=== PATIENT | female | born 1980 | race Caucasian/White ===

== ENCOUNTER → 2017-05-23 | Outpatient (CLI) | payer BC ==
--- NOTE | 2017-05-23 08:04 | MM ---
Reason for exam: additional evaluation requested from prior study. Last mammogram was performed 1 year and 6 months ago. Physical Findings: Nurse did not find any significant physical abnormalities on exam. MG Diagnostic Mammo w CAD DARLYN Bilateral CC and MLO view(s) were taken. LM, CCRM, and spot compression MLO view(s) were taken of the left breast. Prior study comparison: November 25, 2015, bilateral MG screening mammo w CAD. The breast tissue is heterogeneously dense. This may lower the sensitivity of mammography. Nodular density in the left breast does not persist following spot compression. 6 month follow up recommended. These results were verbally communicated with the patient and result sheet given to the patient on 05/23/17. ASSESSMENT: Probably benign, BI-RAD 3 RECOMMENDATION: Follow-up diagnostic mammogram of the left breast in 6 months.
== END | disposition home or self-care (01) ==
LOC: RADMAMWWP 06:55
PROVIDERS: ATTEND Obstetrics & Gynecology
DX: R92.8 Other abnormal and inconclusive findings on diagnostic imaging of breast (principal)

== ENCOUNTER → 2018-04-16 | Outpatient (CLI) | payer BC ==
[2018-04-16 08:59] LABS: ALT 27 U/L (9-52); AST 23 U/L (14-36); Albumin 4.2 g/dL (3.5-5.0); Alkaline Phosphatase 62 U/L (38-126); Anion Gap 10 mmol/L; Blood Urea Nitrogen 15 mg/dL (7-17); Calcium 9.3 mg/dL (8.4-10.2); Carbon Dioxide 26 mmol/L (22-30); Chloride 101 mmol/L (98-107); Cholesterol 233 mg/dL (<200); Glucose 95 mg/dL (74-99); HDL Cholesterol 53 mg/dL (40-60); LDL Cholesterol,Calculated 138 mg/dL (0-99); Potassium 4.7 mmol/L (3.5-5.1); Sodium 137 mmol/L (137-145); Total Protein 7.2 g/dL (6.3-8.2); Triglycerides 211 mg/dL (<150)
[2018-04-16 18:34] LABS: Protein, Total 6.9 g/dL (6.2-8.2)
[2018-04-17 16:13] LABS: Albumin 4.25 g/dL (3.80-4.90); Gamma Globulin 1.03 g/dL (0.70-1.50)
== END | disposition home or self-care (01) ==
LOC: LABWHC1 07:13
PROVIDERS: ATTEND Family Medicine
DX: E78.2 Mixed hyperlipidemia (principal); R77.9 Abnormality of plasma protein, unspecified
CPT/HCPCS: 36415; 80053; 80061; 84165

== ENCOUNTER → 2018-06-09 | Outpatient (CLI) | payer BC ==
--- NOTE | 2018-06-09 10:19 | MM ---
Reason for exam: additional evaluation requested from prior study. Last mammogram was performed 1 year and 1 month ago. Physical Findings: Nurse did not find any significant physical abnormalities on exam. MG Diagnostic Mammo w CAD DARLYN Bilateral CC and MLO view(s) were taken. Prior study comparison: May 23, 2017, bilateral MG diagnostic mammo w CAD DARLYN. November 25, 2015, bilateral MG screening mammo w CAD. The breast tissue is heterogeneously dense. This may lower the sensitivity of mammography. There is no discrete abnormality including area of concern. No significant new findings when compared with previous films. These results were verbally communicated with the patient and result sheet given to the patient on 06/09/18. ASSESSMENT: Negative, BI-RAD 1 RECOMMENDATION: Routine screening mammogram of both breasts in 1 year.
== END | disposition home or self-care (01) ==
LOC: RADMAMWWP 07:08
PROVIDERS: ATTEND Obstetrics & Gynecology
DX: R92.8 Other abnormal and inconclusive findings on diagnostic imaging of breast (principal)
CPT/HCPCS: 77066

== ENCOUNTER → 2020-09-16 | Outpatient (CLI) | payer BC ==
--- NOTE | 2020-09-16 17:45 | CT ---
EXAMINATION TYPE: CT abdomen pelvis wo con DATE OF EXAM: 09/16/2020 COMPARISON: None HISTORY: abdominal pain CT DLP: 475.5 mGycm Automated exposure control for dose reduction was used. Images obtained from the diaphragm to the floor the pelvis with oral contrast only. Lung bases are clear. There is no pleural effusion. Heart size is normal. There is no pericardial eff usion. Liver spleen stomach pancreas gallbladder appear normal. Bile ducts are not dilated. Stomach appears intact. There is no adrenal mass. Kidneys show normal size and contour. There is no hydronephrosis. There is focal minimal cortical thinning upper pole right kidney with 2 mm calcification. Ureters are not dila soledad. There is no retroperitoneal adenopathy. Bladder distends smoothly. Uterus is tilted towards the right side. There is no inguinal hernia. There is no free fluid in the pelvis. There is some mild fat stranding around the mid sigmoid colon. There is extraluminal air bubble on ax ial image 59. Appendix is posterior and appears normal. Small bowel pattern is normal. There is no evidence of a ralph wel obstruction. Lumbar vertebra have normal alignment. Disc spaces are fairly normal. Posterior elements are intact. Bony pelvis is intact. IMPRESSION: There is focal diverticulitis of the mid sigmoid colon. No drainable fluid collection. Normal appendix. No renal stone or obstruction.
== END | disposition home or self-care (01) ==
LOC: RADCTMAIN 15:20
PROVIDERS: ATTEND Family Medicine
DX: K57.32 Diverticulitis of large intestine without perforation or abscess without bleeding (principal)
CPT/HCPCS: 74176

== ENCOUNTER 2021-04-03 05:43 | Day surgery (SDC) | payer BC ==
[2021-03-29 11:48] VITALS: BMI 28.3
--- NOTE | 2021-04-02 13:49 | P.HPOB ---
History of Present Illness H&P Date: 04/02/21 Chief Complaint: Menorrhagia This patient is a pleasant 40 yr female who presents for hysteroscopy, D&C and endometrial ablation secondary to menorrhagia. This has been going on for many years. Ultrasound showed a normal uterus. Endometrium did have a small cystic area, otherwise normal. She has had a tubal ligation for control and is not inclined to take hormones. Review of Systems Genitourinary: Reports as per HPI, Reports menorrhagia Past Medical History Additional Past Medical History / Comment(s): diverticulitis. heavy vaginal bleeding. plantar fasciitis-rosibel History of Any Multi-Drug Resistant Organisms: None Reported Past Surgical History: Tubal Ligation Additional Past Surgical History / Comment(s): D&C, Past Anesthesia/Blood Transfusion Reactions: No Reported Reaction Smoking Status: Never smoker - Past Family History Mother Family Medical History: No Reported History Medications and Allergies Home Medications Medication Instructions Recorded Confirmed Type Ascorbic Acid/Multivit-Min 1,000 mg PO DAILY 03/29/21 03/29/21 History [Emergen-C 1,000 mg Packet] polyethylene glycoL 3350 [Miralax] 17 gm PO DAILY PRN 03/29/21 03/29/21 History Allergies Allergy/AdvReac Type Severity Reaction Status Date / Time No Known Allergies Allergy Verified 03/29/21 11:37 Exam - OBG Physical Exam Abdomen: bowel sounds normal, no diffuse tenderness, no bruit present, no guarding noted, no hepatomegaly, no splenomegaly, no mass Vulva: both: normal Vagina: normal moisture, no discharge Cervix: no lesion, no discharge Results Ultrasound on 03/10 showed endometrium to be 1.5 cm and small cystic area. Normal ovaries. Assessment and Plan Assessment: This is a pleasant 40 yr old female with longstanding menorrhagia requesting endometrial ablation for treatment. Plan is hysteroscopy D&C and Novasure endometrial ablation. I have discussed this surgery and risks: infection, bleeding, possible uterine perforation and/or thermal injury. All of her questions have been answered and a written consent obtained. (1) Menorrhagia Status: Chronic Code(s): N92.0 - EXCESSIVE AND FREQUENT MENSTRUATION WITH REGULAR CYCLE SNOMED Code(s): 761703704
[~2021-04-03 05:43] MED LIST: Pre Op ABX Message 1 EACH MISC MISCELLANE ONE
[2021-04-03] MEDS ORDERED: HYDROmorphone 0.5 MG/0.5 ML SYRINGE IVP PRN (05:50)
[2021-04-03] MEDS ORDERED: ONDANSETRON 4 MG/2 ML VIAL IVP ONE (05:50)
[2021-04-03] MEDS ORDERED: LIDOCAINE 1% (10MG/ML) FOR IV START INTRADERMA PRN (05:50)
[2021-04-03] MEDS ORDERED: DEXAMETHASONE SOD PHOSPHATE 4 MG/ML 1 ML VIAL IV ONE (05:50)
[2021-04-03] MEDS ORDERED: LACTATED RINGERS 1,000 ML IV SCH (05:50)
[2021-04-03] MEDS ORDERED: SCOPOLAMINE 1.5MG/72HR PATCH TRANSDERM ONE (05:50)
[2021-04-03] MEDS ORDERED: fentaNYL (PF) 50 MCG/ML 2 ML AMP ONE (06:51)
[2021-04-03] MEDS ORDERED: LIDOCAINE 1% INJ 10MG/ML (20 ML MDV) ONE (06:51)
[2021-04-03] MEDS ORDERED: MIDAZOLAM 2 MG/2 ML VIAL ONE (06:51)
[2021-04-03] MEDS ORDERED: PROPOFOL 10 MG/ML 20 ML VIAL IV ONE (06:51)
[2021-04-03] MEDS ORDERED: KETOROLAC 15 MG/ML 1 ML VIAL ONE (06:51)
--- NOTE | 2021-04-03 07:27 | P.OP ---
Date of Procedure: 04/03/21 Preoperative Diagnosis: Menorrhagia Postoperative Diagnosis: Same Procedure(s) Performed: #1: Hysteroscopy. #2: Dilation and curettage. #3: NovaSure endometrial ablation Anesthesia: other (LMA) Surgeon: Hussain Ny Estimated Blood Loss (ml): 10 Urine output (ml): 20 Pathology: other (Uterine curettings) Condition: stable Disposition: PACU Indications for Procedure: Please see dictated H&P for intimate details of this patient's admission. Brief summary this pleasant 40-year-old 3 para 2 female long-standing menorrhagia requesting endometrial ablation for treatment. Patient understands the surgery and risks and risks of infection, bleeding, possible uterine perforation, and/or thermal injury. All the patient's questions are answered written consent is obtained. Operative Findings: This patient had a normal-appearing endometrial cavity Description of Procedure: This patient is taken to the operating room where she is laid in the supine position. She subsequent undergoes general anesthesia without incident. With adequate level of anesthesia was placed in dorsal lithotomy position. She has a vaginal perineal prep and drape. Examination under anesthesia shows a mid posit ion uterus of normal size. Weighted speculum placed in posterior vagina. The bladder is drained for 20 mL of clear urine. I take an Allis clamp and grabbed the anterior lip of the cervix. I gently dilate the cervix and it sounds to 8.5 cm. Using a hysteroscope and saline solution hysteroscopy is performed. Uterine cavity length was measured at 6 cm. There is no evidence of polyps, fibroids or other growths. This completed the hysteroscope was removed. Cervix is dilated more to allow a small curette easily and the uterine cavity. A gentle but thorough 4 quadrant curettage is then done. This completed the NovaSure device is then opened and set at a length of 6.0 cm. It is seated in place and opens up to a width of 4.7 cm. After passing the cavity integrity test is enabled at 155 [address] setting for 108 seconds. This completed the NovaSure device is then removed. Hysteroscopy is performed again and the uterine cavity appears to be completely ablated up to the endocervix. Excellent results are noted. This point the Allis clamp and weighted speculum removed. Patient is awakened from anesthesia and taken recovery room satisfactory condition. All counts are correct 3. There are no complications.
[2021-04-03 07:34] VITALS: TEMP 97
[2021-04-03 08:39] VITALS: BP 127/81; PULSE 66; RESP 14
== END 2021-04-03 08:59 | disposition home or self-care (01) ==
LOC: OR 05:43
PROVIDERS: ATTEND Obstetrics & Gynecology
DX: N92.0 Excessive and frequent menstruation with regular cycle (principal); K57.90 Diverticulosis of intestine, part unspecified, without perforation or abscess without bleeding
CPT/HCPCS: 81025; 88305; 58563; J2250; J1100; J2405; J2001; J3010; J1885; J2704; J1170

== ENCOUNTER 2021-05-16 09:38 | Day surgery (SDC) | payer BC ==
[2021-05-11 10:12] VITALS: BMI 28.3
[~2021-05-16 09:38] MED LIST changes: +DEXAMETHASONE SOD PHOSPHATE 4 MG/ML 1 ML VIAL IV ONE; +HYDROmorphone 0.5 MG/0.5 ML SYRINGE IVP PRN; +LACTATED RINGERS 1,000 ML IV SCH; +ONDANSETRON 4 MG/2 ML VIAL IVP ONE; -Pre Op ABX Message 1 EACH MISC MISCELLANE ONE
[2021-05-16 10:11] VITALS: TEMP 97.2
[2021-05-16] MEDS ORDERED: PROPOFOL 10 MG/ML 20 ML VIAL IV ONE (11:24)
[2021-05-16] MEDS ORDERED: LIDOCAINE 1% INJ 10MG/ML (20 ML MDV) ONE (11:24)
--- NOTE | 2021-05-16 11:26 | P.GSHP ---
History of Present Illness H&P Date: 05/16/21 Chief Complaint: Change in bowel habits 40-year-old female here today for colonoscopy. She has not had 1 previously. She was hospitalized at [facility] 2-3 months ago with diverticulitis. Patient was seen in the office last in March. Finished her course of antibiotics. She has not had any further episodes. No rectal bleeding or melena. Maternal uncle with history of colon cancer Past Medical History Additional Past Medical History / Comment(s): DIVERTICULITIS History of Any Multi-Drug Resistant Organisms: None Reported Past Surgical History: Tubal Ligation, Uterine Ablation Additional Past Surgical History / Comment(s): DENTAL IMPLANTS - FRONT Past Anesthesia/Blood Transfusion Reactions: No Reported Reaction Smoking Status: Never smoker - Past Family History Mother Family Medical History: No Reported History Medications and Allergies Home Medications Medication Instructions Recorded Confirmed Type Ascorbic Acid/Multivit-Min 1,000 mg PO DAILY 03/29/21 05/16/21 History [Emergen-C 1,000 mg Packet] polyethylene glycoL 3350 [Miralax] 8.5 gm PO DAILY 03/29/21 05/16/21 History Ibuprofen [Motrin] 600 mg PO Q6HR PRN #30 tab 04/03/21 05/16/21 Rx Allergies Allergy/AdvReac Type Severity Reaction Status Date / Time No Known Allergies Allergy Verified 05/16/21 09:59 Surgical - Exam Vital Signs Temp Pulse Resp BP Pulse Ox 97.2 F L 94 18 140/78 99 05/16/21 10:08 05/16/21 10:08 05/16/21 10:08 05/16/21 10:08 05/16/21 10:08 Physical exam: General: Well-developed, well-nourished HEENT: Normocephalic, sclerae nonicteric Abdomen: Nontender, nondistended Extremities: No edema Neuro: Alert and oriented Assessment and Plan (1) Change in bowel habits Narrative/Plan: Will proceed with colonoscopy Current Visit: Yes Status: Acute Code(s): R19.4 - CHANGE IN BOWEL HABIT SNOMED Code(s): 712451324
--- NOTE | 2021-05-16 11:46 | P.PCN ---
Date of Procedure: 05/16/21 Procedure(s) Performed: PREOPERATIVE DIAGNOSIS: Change in bowel habits POSTOPERATIVE DIAGNOSIS: Diverticulosis PROCEDURE: Colonoscopy ANESTHESIA: MAC SURGEON: Bashir Aguilar M.D. SPECIMENS: None ENDOSCOPIC PROCEDURE: The patient was placed on the endoscopy table in the left decubitus position. The Olympus colonoscope was inserted into the anus and passed under direct visualization to the base of the cecum. The appendiceal orifice was visualized. From that point the scope was slowly withdrawn inspe cting all surfaces carefully. There were no neoplastic inflammatory or polypoid lesions throughout the cecum, ascending, transverse, descending, sigmoid and rectum. There was mild left-sided diverticulosis noted with mild tortuosity throughout the sigmoid. Digital rectal examination was normal. The patient was taken to the recovery room in stable condition per anesthesia guidelines. RECOMMENDATIONS: Resume diet. Increase dietary fiber. Follow-up colonoscopy age 48.
[2021-05-16] MEDS ORDERED: IV FLUID CONTINUATION 1,000 ML IV ONE (11:47)
[2021-05-16 12:15] VITALS: BP 127/72; PULSE 78; RESP 18
== END 2021-05-16 12:26 | disposition home or self-care (01) ==
LOC: ORWHC2ENDO 09:38
PROVIDERS: ATTEND Surgery
DX: Z80.0 Family history of malignant neoplasm of digestive organs (principal); K57.90 Diverticulosis of intestine, part unspecified, without perforation or abscess without bleeding; Z79.1 Long term (current) use of non-steroidal anti-inflammatories (NSAID)
CPT/HCPCS: 81025; J2001; J2704; G0105

== ENCOUNTER → 2021-06-30 | Outpatient (CLI) | payer BC ==
--- NOTE | 2021-07-03 09:26 | MM ---
Reason for exam: screening (asymptomatic). Last mammogram was performed 1 year and 2 months ago. History: Patient is postmenopausal. Physical Findings: A clinical breast exam by your physician is recommended on an annual basis and results should be correlated with mammographic findings. MG Screening Mammo w CAD Bilateral CC and MLO view(s) were taken. Prior study comparison: May 05, 2020, bilateral MG screening mammo w CAD. June 09, 2018, bilateral MG diagnostic mammo w CAD DARLYN. The breast tissue is heterogeneously dense. This may lower the sensitivity of mammography. There is no discrete abnormality. ASSESSMENT: Negative, BI-RAD 1 RECOMMENDATION: Routine screening mammogram of both breasts in 1 year.
== END | disposition home or self-care (01) ==
LOC: RADMAMWWP 06:59
PROVIDERS: ATTEND Obstetrics & Gynecology
DX: Z12.31 Encounter for screening mammogram for malignant neoplasm of breast (principal); Z78.0 Asymptomatic menopausal state
CPT/HCPCS: 77067

== ENCOUNTER → 2022-07-02 | Outpatient (CLI) | payer BC ==
--- NOTE | 2022-07-03 08:21 | MM ---
Reason for Exam: Screening (asymptomatic). Last screening mammogram was performed 12 month(s) ago. Patient History: Menarche at age 8. First Full-Term at age 17. Patient has history of breast feeding. Risk Values: Coby 5 year model risk: 0.6%. NCI Lifetime model risk: 7.8%. Prior Study Comparison: 06/09/2018 Bilateral Diagnostic Mammogram, [facility]. 05/05/2020 Bilateral Screening Mammogram, [facility]. 06/30/2021 Bilateral Screening Mammogram, [facility]. Tissue Density: The breast tissue is heterogeneously dense. This may lower the sensitivity of mammography. Findings: Analyzed By CAD. There is no suspicious group of microcalcifications or new suspicious mass in either breast. No significant change from prior exams. Overall Assessment: Negative, BI-RAD 1 Management: Screening Mammogram of both breasts in 1 year. A clinical breast exam by your physician is recommended on an annual basis and results should be correlated with mammographic findings. Electronically signed and approved by: Juan Fajardo D.O.
== END | disposition home or self-care (01) ==
LOC: RADMAMWWP 07:01
PROVIDERS: ATTEND Obstetrics & Gynecology
DX: Z12.31 Encounter for screening mammogram for malignant neoplasm of breast (principal)
CPT/HCPCS: 77067

== ENCOUNTER 2023-04-09 09:02 | Inpatient (IN) | payer BC ==
[2023-04-09] MEDS ORDERED: SODIUM CHLORIDE 0.9% 1,000 ML IV ONE (09:17)
--- NOTE | 2023-04-09 09:23 | ED ---
General Adult HPI - General Chief complaint: Abdominal Pain Stated complaint: POSS BOWEL PERFORATION Time Seen by Provider: 04/09/23 09:12 Source: patient, RN notes reviewed, old records reviewed Mode of arrival: ambulatory Limitations: no limitations - History of Present Illness Initial comments: 42-year-old female presenting for evaluation of abnormal outpatient CT. Patient had left lower quadrant abdominal pain over the past several days. She was seen by her music intern yesterday who did order an outpatient computed tomography scan. This was performed yesterday evening. She received the results this morning and was instructed to present to the emergency department for evaluation. She denies fever. She states that her pain has improved and she is actually feeling somewhat better. No vomiting. She's had loose stool and diarrhea. - Related Data Home Medications Medication Instructions Recorded Confirmed Ascorbic Acid/Multivit-Min 1,000 mg PO DAILY 03/29/21 05/16/21 [Emergen-C 1,000 mg Packet] polyethylene glycoL 3350 [Miralax] 8.5 gm PO DAILY 03/29/21 05/16/21 Previous Rx's Medication Instructions Recorded Ibuprofen [Motrin] 600 mg PO Q6HR PRN #30 tab 04/03/21 Allergies Allergy/AdvReac Type Severity Reaction Status Date / Time No Known Allergies Allergy Verified 04/09/23 09:09 Review of Systems ROS Statement: Those systems with pertinent positive or pertinent negative responses have been documented in the HPI. ROS Other: All systems not noted in ROS Statement are negative. Past Medical History Additional Past Medical History / Comment(s): DIVERTICULITIS History of Any Multi-Drug Resistant Organisms: None Reported Past Surgical History: Tubal Ligation, Uterine Ablation Additional Past Surgical History / Comment(s): DENTAL IMPLANTS - FRONT Past Anesthesia/Blood Transfusion Reactions: No Reported Reaction Past Psychological History: No Psychological Hx Reported Smoking Status: Never smoker Past Alcohol Use History: Occasional Past Drug Use History: None Reported - Past Family History Mother Family Medical History: No Reported History General Exam Limitations: no limitations General appearance: alert, in no apparent distress Head exam: Present: atraumatic, normocephalic Eye exam: Present: normal appearance, PERRL ENT exam: Present: normal exam Neck exam: Present: normal inspection. Absent: tenderness, meningismus Respiratory exam: Present: normal lung sounds bilaterally. Absent: respiratory distress, wheezes Cardiovascular Exam: Present: regular rate, normal rhythm GI/Abdominal exam: Present: soft. Absent: distended, tenderness, guarding, rebound, rigid Extremities exam: Present: normal inspection, normal capillary refill Neurological exam: Present: alert, oriented X3, CN II-XII intact. Absent: motor sensory deficit Psychiatric exam: Present: normal affect, normal mood Skin exam: Present: warm, dry, intact. Absent: cyanosis, diaphoretic Course Vital Signs 04/09/23 09:06 Temperature 98 F Pulse Rate 103 H Respiratory 18 Rate Blood Pressure 121/84 O2 Sat by Pulse 98 Oximetry - Reevaluation(s) Reevaluation #1: 04/09/23 10:[address] results are obtained from yesterday showing persistent diverticulitis as well as a colonic adnexal fistula. The images are not available for review. Medical Decision Making - Medical Decision Making Was pt. sent in by a medical professional or institution (, PA, POCKET AND PULLEY MACHINE OPERATOR, urgent care, hospital, or care home...) When possible be specific @Sent in by the music intern Did you speak to anyone other than the patient for history (EMS, parent, family, police, friend...)? What history was obtained from this source @ -No Did you review nursing and triage notes (agree or disagree)? Why? @ -I reviewed and agree with nursing and triage notes Were old charts reviewed (outside hosp., previous admission, EMS record, old EKG, old radiological studies, urgent care reports/EKG's, care home records)? Report findings @ -No old charts were reviewed Differential Diagnosis (chest pain, altered mental status, abdominal pain women, abdominal pain men, vaginal bleeding, weakness, fever, dyspnea, syncope, headache, dizziness, GI bleed, back pain, seizure, CVA, palpatations, mental health, musculoskeletal)? @ Differential Abdominal Pain Women: Appendicitis, Cholecystitis, diverticulosis, ischemic bowel, pancreatitis, hepatitis, UTI, gastroenteritis, AAA, incarcerated hernia, bowel obstruction, constipation, inflammatory bowel, hepatitis, peptic ulcer disease, splenic i nfarction, perforated viscus, vulvitis, ovarian torsion, PID, kidney stone, placenta abruption, this is not meant to be an all-inclusive list EKG interpreted by me (3pts min.). @ -As above X-rays interpreted by me (1pt min.). @ -None done CT interpreted by me (1pt min.). @CT results being obtained from [place] [address] U/S interpreted by me (1pt. min.). @ -None done What testing was considered but not performed or refused? (CT, X-rays, U/S, labs)? Why? @ -None What meds were considered but not given or refused? Why? @ -None Did you discuss the management of the patient with other professionals (professionals i.e. , PA, POCKET AND PULLEY MACHINE OPERATOR, lab, RT, psych nurse, social group worker, ranch supervisor, teacher, vessel traffic officer, case management social worker)? Give summary @ -No Was smoking cessation discussed for >3mins.? @ -No Was critical care preformed (if so, how long)? @ -No Were there social determinants of health that impacted care today? How? (Homelessness, low income, unemployed, alcoholism, drug addiction, transportation, low edu. Level, literacy, decrease access to med. care, [place] [facility], rehab)? @ -No Was there de-escalation of care discussed even if they declined (Discuss DNR or withdrawal of care, Hospice)? DNR status @ -No What co-morbidities impacted this encounter? (DM, HTN, Smoking, COPD, CAD, Cancer, CVA, ARF, Chemo, Hep., AIDS, mental health diagnosis, sleep apnea, morbid obesity)? @ -Diverticulitis Was patient admitted / discharged? Hospital course, mention meds given and route, prescriptions, significant lab abnormalities, going to OR and other pertinent info. @ -42-year-old female with left lower quadrant abdominal pain and abnormal outpatient CT. 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 Patient is started on antibiotics. She will be admitted to internal medicine with general surgery on consult for evaluation. Laboratory testing within normal limits. Undiagnosed new problem with uncertain prognosis? @ -No Drug Therapy requiring intensive monitoring for toxicity (Heparin, Nitro, Insulin, Cardizem)? @ -No Were any procedures done? @ -No Diagnosis/symptom? @ -[Diverticulitis with fistula formation Acute, or Chronic, or Acute on Chronic? @ -Acute Uncomplicated (without systemic symptoms) or Complicated (systemic symptoms)? @Complicated Side effects of treatment? @ -No Exacerbation, Progression, or Severe Exacerbation? @ -No Poses a threat to life or bodily function? How? (Chest pain, USA, OR, pneumonia, PE, COPD, DKA, ARF, appy, cholecystitis, CVA, Diverticulitis, Homicidal, Suicidal, threat to staff... and all critical care pts) @ -Yes, Risk of sepsis - Lab Data Result diagrams: 04/09/23 09:30 04/09/23 09:30 Lab Results 04/09/23 04/09/23 04/09/23 Range/Units 09:30 09:30 09:30 WBC 9.2 (3.8-10.6) k/uL RBC 4.87 (3.80-5.40) m/uL Hgb 13.4 (11.4-16.0) gm/dL Hct 40.8 (34.0-46.0) % MCV 83.6 (80.0-100.0) fL MCH 27.4 (25.0-35.0) pg MCHC 32.8 (31.0-37.0) g/dL RDW 13.7 (11.5-15.5) % Plt Count 283 (150-450) k/uL MPV 8.3 Neutrophils % 64 % Lymphocytes % 24 % Monocytes % 5 % Eosinophils % 2 % Basophils % 1 % Neutrophils # 5.9 (1.3-7.7) k/uL Lymphocytes # 2.2 (1.0-4.8) k/uL Monocytes # 0.5 (0-1.0) k/uL Eosinophils # 0.2 (0-0.7) k/uL Basophils # 0.1 (0-0.2) k/uL PT 11.0 (9.0-12.0) sec INR 1.1 (<1.2) APTT 25.5 (22.0-30.0) sec Sodium (137-145) mmol/L Potassium (3.5-5.1) mmol/L Chloride (98-107) mmol/L Carbon Dioxide (22-30) mmol/L Anion Gap mmol/L BUN (7-17) mg/dL Creatinine (0.52-1.04) mg/dL Est GFR (CKD-EPI)AfAm (>60 ml/min/1.73 sqM) Est GFR (CKD-EPI)NonAf (>60 ml/min/1.73 sqM) Glucose (74-99) mg/dL Plasma Lactic Acid Lawrence (0.7-2.0) mmol/L Calcium (8.4-10.2) mg/dL Total Bilirubin (0.2-1.3) mg/dL AST (14-36) U/L ALT (4-34) U/L Alkaline Phosphatase (38-126) U/L Total Protein (6.3-8.2) g/dL Albumin (3.5-5.0) g/dL Lipase (23-300) U/L Urine Color Yellow Urine Appearance Cloudy H (Clear) Urine pH 6.0 (5.0-8.0) Ur Specific [place] 1.036 H (1.001-1.035) Urine Protein 1+ H (Negative) Urine Glucose (UA) Negative (Negative) Urine Ketones 1+ H (Negative) Urine Blood Moderate H (Negative) Urine Nitrite Negative (Negative) Urine Bilirubin Negative (Negative) Urine Urobilinogen <2.0 (<2.0) mg/dL Ur Leukocyte Esterase Negative (Negative) Urine RBC 3 (0-5) /hpf Urine WBC 2 (0-5) /hpf Ur Squamous Epith Cells 5 H (0-4) /hpf Calcium Oxalate Crystal Few H (None) /hpf Urine Mucus Many H (None) /hpf Urine HCG, Qual (Not Detectd) 04/09/23 04/09/23 04/09/23 Range/Units 09:30 09:30 09:30 WBC (3.8-10.6) k/uL RBC (3.80-5.40) m/uL Hgb (11.4-16.0) gm/dL Hct (34.0-46.0) % MCV (80.0-100.0) fL MCH (25.0-35.0) pg MCHC (31.0-37.0) g/dL RDW (11.5-15.5) % Plt Count (150-450) k/uL MPV Neutrophils % % Lymphocytes % % Monocytes % % Eosinophils % % Basophils % % Neutrophils # (1.3-7.7) k/uL Lymphocytes # (1.0-4.8) k/uL Monocytes # (0-1.0) k/uL Eosinophils # (0-0.7) k/uL Basophils # (0-0.2) k/uL PT (9.0-12.0) sec INR (<1.2) APTT (22.0-30.0) sec Sodium 136 L (137-145) mmol/L Potassium 4.5 (3.5-5.1) mmol/L Chloride 103 (98-107) mmol/L Carbon Dioxide 22 (22-30) mmol/L Anion Gap 11 mmol/L BUN 7 (7-17) mg/dL Creatinine 0.71 (0.52-1.04) mg/dL Est GFR (CKD-EPI)AfAm >90 (>60 ml/min/1.73 sqM) Est GFR (CKD-EPI)NonAf >90 (>60 ml/min/1.73 sqM) Glucose 106 H (74-99) mg/dL Plasma Lactic Acid Lawrence 1.1 (0.7-2.0) mmol/L Calcium 8.9 (8.4-10.2) mg/dL Total Bilirubin 0.9 (0.2-1.3) mg/dL AST 42 H (14-36) U/L ALT 30 (4-34) U/L Alkaline Phosphatase 85 (38-126) U/L Total Protein 7.9 (6.3-8.2) g/dL Albumin 4.1 (3.5-5.0) g/dL Lipase 117 (23-300) U/L Urine Color Urine Appearance (Clear) Urine pH (5.0-8.0) Ur Specific [place] (1.001-1.035) Urine Protein (Negative) Urine Glucose (UA) (Negative) Urine Ketones (Negative) Urine Blood (Negative) Urine Nitrite (Negative) Urine Bilirubin (Negative) Urine Urobilinogen (<2.0) mg/dL Ur Leukocyte Esterase (Negative) Urine RBC (0-5) /hpf Urine WBC (0-5) /hpf Ur Squamous Epith Cells (0-4) /hpf Calcium Oxalate Crystal (None) /hpf Urine Mucus (None) /hpf Urine HCG, Qual Not Detected (Not Detectd) Disposition Clinical Impression: Diverticulitis, Colonic fistula Disposition: ADMITTED IP TO THIS [facility] Condition: Stable Is patient prescribed a controlled substance at d/c from ED?: No Referrals: Shayy Morrell III, MD [Primary Care Provider] - 1-2 days Time of Disposition: 10:49
[2023-04-09 09:59] LABS: Appearance,Urine Cloudy (Clear); Bilirubin,Urine Negative (Negative); Blood,Urine Moderate (Negative); Calcium Oxalate Crystals,Urine Few /hpf; Color,Urine Yellow; Glucose,Urine (UA) Negative (Negative); Ketones,Urine 1+ (Negative); Leukocyte Esterase,Urine Negative (Negative); Mucus,Urine Many /hpf; Nitrite,Urine Negative (Negative); Protein,Urine 1+ (Negative); RBC,Urine 3 /hpf (0-5); Specific Gravity,Urine 1.036 (1.001-1.035); Squamous Epithelial Cell,Urine 5 /hpf (0-4); Urobilinogen,Urine <2.0 mg/dL (<2.0); WBC,Urine 2 /hpf (0-5)
[2023-04-09 10:14] LABS: ALT 30 U/L (4-34); African American GFR (CKD) >90 (>60 ml/min/1.73 sqM); Anion Gap 11 mmol/L; Basophils # (A) 0.1 k/uL (0-0.2); Basophils % (A) 1 %; Blood Urea Nitrogen 7 mg/dL (7-17); Calcium 8.9 mg/dL (8.4-10.2); Carbon Dioxide 22 mmol/L (22-30); Chloride 103 mmol/L (98-107); Eosinophils # (A) 0.2 k/uL (0-0.7); Eosinophils % (A) 2 %; Glucose 106 mg/dL (74-99); HCT 40.8 % (34.0-46.0); HGB 13.4 gm/dL (11.4-16.0); Lipase 117 U/L (23-300); Lymphocytes # (A) 2.2 k/uL (1.0-4.8); Lymphocytes % (A) 24 %; MCH 27.4 pg (25.0-35.0); MCHC 32.8 g/dL (31.0-37.0); MCV 83.6 fL (80.0-100.0); Mean Platelet Volume 8.3; Monocytes # (A) 0.5 k/uL (0-1.0); Monocytes % (A) 5 %; Neutrophils # (A) 5.9 k/uL (1.3-7.7); Neutrophils % (A) 64 %; Non-African American GFR(CKD) >90 (>60 ml/min/1.73 sqM); Platelet Count 283 k/uL (150-450); RBC 4.87 m/uL (3.80-5.40); RDW 13.7 % (11.5-15.5); Sodium 136 mmol/L (137-145); Total Bilirubin 0.9 mg/dL (0.2-1.3); WBC 9.2 k/uL (3.8-10.6)
[2023-04-09 10:23] LABS: INR 1.1 (<1.2); Partial Thromboplastin Time 25.5 sec (22.0-30.0)
[2023-04-09 10:24] LABS: Potassium 4.5 mmol/L (3.5-5.1); Total Protein 7.9 g/dL (6.3-8.2)
[2023-04-09 10:25] LABS: AST 42 U/L (14-36); Albumin 4.1 g/dL (3.5-5.0); Alkaline Phosphatase 85 U/L (38-126)
[2023-04-09] MEDS ORDERED: HYDROmorphone 0.5 MG/0.5 ML SYRINGE IVP PRN (10:45)
[2023-04-09] MEDS ORDERED: NALOXONE 0.4 MG/ML 1 ML VIAL IV PRN (10:45)
[2023-04-09] MEDS ORDERED: ONDANSETRON 4 MG/2 ML VIAL IVP PRN (10:45)
[2023-04-09] MEDS: SODIUM CHLORIDE 0.9% 1,000 ML IV SCH ×2 (11:02→19:46)
[2023-04-09] MEDS: PIPERACILLIN-TAZOBACTAM 3.375 GM in SODIUM CHLORIDE 0.9% 100 ML IVPB SCH ×2 (11:02→19:46)
--- NOTE | 2023-04-09 12:14 | P.HPIM ---
History of Present Illness Patient is a pleasant 42-year-old the female was having the pain in the left lower quadrant and constipation followed by diarrhea on [place]. Patient denied any vomiting but was having nausea. Patient's pain is moderate severity patient was seen in the outpatient GI office and CT of the abdomen is soft. Which showed diverticulitis with possible colovesical fistula and patient was requested to go to ER. Patient was started on Zosyn here patient has a mild tachycardia rest of the labs are within normal limits patient doesn't have any leukocytosis or fever. General surgery was consulted. REVIEW OF SYSTEMS: CONSTITUTIONAL: No fever, no malaise, no fatigue. HEENT: No recent visual problems or hearing problems. Denied any sore throat. CARDIOVASCULAR: No chest pain, orthopnea, PND, no palpitations, no syncope. PULMONARY: No shortness of breath, no cough, no hemoptysis. GASTROINTESTINAL: As mentioned in HPI NEUROLOGICAL: No headaches, no weakness, no numbness. HEMATOLOGICAL: Denies any bleeding or petechiae. GENITOURINARY: Denies any burning micturition, frequency, or urgency. MUSCULOSKELETAL/RHEUMATOLOGICAL: Denies any joint pain, swelling, or any muscle pain. ENDOCRINE: Denies any polyuria or polydipsia. The rest of the 14-point review of systems is negative. PHYSICAL EXAMINATION: GENERAL: The patient is alert and oriented x3, not in any acute distress. Well developed, well nourished. HEENT: Pupils are round and equally reacting to light. EOMI. No scleral icterus. No conjunctival pallor. Normocephalic, atraumatic. No pharyngeal erythema. No thyromegaly. CARDIOVASCULAR: S1 and S2 present. No murmurs, rubs, or gallops. PULMONARY: Chest is clear to auscultation, no wheezing or crackles. ABDOMEN: Soft, mild tenderness in the left lower quadrant nondistended, normoactive bowel sounds. No palpable organomegaly. MUSCULOSKELETAL: No joint swelling or deformity. EXTREMITIES: No cyanosis, clubbing, or pedal edema. NEUROLOGICAL: Gross neurological examination did not reveal any focal deficits. SKIN: No rashes. Assessment and plan -Left lower quadrant abdominal pain: Secondary to diverticulitis possible fistula continue with antibiotics IV fluids and surgery consultation -Tachycardia secondary to pain and diverticulitis IV fluids as mentioned above DVT prophylaxis: Early ambulation GI prophylaxis Pepcid Past Medical History Additional Past Medical History / Comment(s): DIVERTICULITIS History of Any Multi-Drug Resistant Organisms: None Reported Past Surgical History: Tubal Ligation, Uterine Ablation Additional Past Surgical History / Comment(s): DENTAL IMPLANTS - FRONT Past Anesthesia/Blood Transfusion Reactions: No Reported Reaction Past Psychological History: No Psychological Hx Reported Smoking Status: Never smoker Past Alcohol Use History: Occasional Past Drug Use History: None Reported - Past Family History Mother Family Medical History: No Reported History Medications and Allergies Home Medications Medication Instructions Recorded Confirmed Type Amoxic-Pot Clav 875-125Mg 1 tab PO Q12HR 04/09/23 04/09/23 History [Augmentin 875-125] Magnesium 250 mg PO DAILY 04/09/23 04/09/23 History Omeprazole [PriLOSEC] 40 mg PO DAILY 04/09/23 04/09/23 History Allergies Allergy/AdvReac Type Severity Reaction Status Date / Time No Known Allergies Allergy Verified 04/09/23 11:33 Physical Exam Vitals: Vital Signs Temp Pulse Resp BP Pulse Ox 04/09/23 09:06 98 F 103 H 18 121/84 98 Intake and Output 04/08/23 04/09/23 04/09/23 22:59 06:59 14:59 Other: Weight 79.379 kg Results CBC & Chem 7: 04/09/23 09:30 04/09/23 09:30 Labs: Abnormal Lab Results - Last 24 Hours (Table) 04/09/23 04/09/23 Range/Units 09:30 09:30 Sodium 136 L (137-145) mmol/L Glucose 106 H (74-99) mg/dL AST 42 H (14-36) U/L Urine Appearance Cloudy H (Clear) Ur Specific [place] 1.036 H (1.001-1.035) Urine Protein 1+ H (Negative) Urine Ketones 1+ H (Negative) Urine Blood Moderate H (Negative) Ur Squamous Epith Cells 5 H (0-4) /hpf Calcium Oxalate Crystal Few H (None) /hpf Urine Mucus Many H (None) /hpf
--- NOTE | 2023-04-09 13:45 | P.GSCN ---
History of Present Illness Consult date: 04/09/23 History of present illness: CHIEF COMPLAINT: Abdominal HISTORY OF PRESENT ILLNESS: This is a 42-year-old female with a known history of diverticulitis. Patient has had a total of 3 prior episodes of diverticulitis in which one did require hospitalization. Patient reports that she's been having left lower quadrant abdominal pain for about 6 days. She went to see her GI specialist, Dr. Vance yesterday who ordered a computed tomography scan to be completed outpatient. CAT scan findings showed evidence of persistent diverticulitis and evidence of a tubular fluid collection tracking from the distal sigmoid colon into the left adnexa measuring 5 cm in length with a small amount of air in the left adnexa. Concerns for possible colo-ovarian or colo- salpingo fistula. Patient does report her pain has decreased today. Pain yesterday was rating about a 7 out of 10. Now she is a 2 out of 10. Surgical history includes a tubal ligation. Last colonoscopy was in May 2021 with evidence of diverticulosis. PAST MEDICAL HISTORY: See below. diverticulitis, esophageal ulcers PAST SURGICAL HISTORY: See below MEDICATIONS: See below ALLERGIES: See below SOCIAL HISTORY: No illicit drug use. REVIEW OF SYSTEMS: CONSTITUTIONAL: Denies fever or chills. HEENT: Denies blurred vision, vision changes, or eye pain. Denies hemoptysis CARDIOVASCULAR: Denies chest pain or pressure. RESPIRATORY: No shortness of breath. GASTROINTESTINAL: See HPI for pertinent findings HEMATOLOGIC: Denies bleeding disorders. GENITOURINARY: Denies any blood in urine or increased urinary frequency. SKIN: Denies pruitis. Denies rash. PHYSICAL EXAM: VITAL SIGNS: Reviewed GENERAL: Well-developed in no acute distress. ABDOMEN: Soft. Nondistended. Mild tenderness to palpation of left lower quadrant NEUROLOGIC: Alert and oriented. Cranial nerves II through XII grossly intact. LABORATORY DATA: WBC 9.2 Hgb 13.4 platelets 283 INR 1.1 Na 136 potassium 4.5 creatinine 0.71 IMAGING: Computed tomography scan findings as stated above ASSESSMENT: 1. Diverticulitis with fluid collection tracking from the distal sigmoid colon into the left adnexa with a small amount of air. Concerns for fistula. 2. History of prior episodes of diverticulitis PLAN: -Further recommendations forthcoming per surgeon -Keep patient nothing by mouth -Continue IV antibiotics -Continue IV fluids -Continue supportive care Physician Nursing Care Attendant note has been reviewed by physician. Signing provider agrees with the documented findings, assessment, and plan of care. Past Medical History Additional Past Medical History / Comment(s): DIVERTICULITIS History of Any Multi-Drug Resistant Organisms: None Reported Past Surgical History: Tubal Ligation, Uterine Ablation Additional Past Surgical History / Comment(s): DENTAL IMPLANTS - FRONT Past Anesthesia/Blood Transfusion Reactions: No Reported Reaction Past Psychological History: No Psychological Hx Reported Smoking Status: Never smoker Past Alcohol Use History: Occasional Past Drug Use History: None Reported - Past Family History Mother Family Medical History: No Reported History Medications and Allergies Home Medications Medication Instructions Recorded Confirmed Type Amoxic-Pot Clav 875-125Mg 1 tab PO Q12HR 04/09/23 04/09/23 History [Augmentin 875-125] Magnesium 250 mg PO DAILY 04/09/23 04/09/23 History Omeprazole [PriLOSEC] 40 mg PO DAILY 04/09/23 04/09/23 History Allergies Allergy/AdvReac Type Severity Reaction Status Date / Time No Known Allergies Allergy Verified 04/09/23 11:33 Surgical - Exam Vital Signs Temp Pulse Resp BP Pulse Ox 98 F 103 H 18 121/84 98 04/09/23 09:06 04/09/23 09:06 04/09/23 09:06 04/09/23 09:06 04/09/23 09:06 Results - Labs 04/09/23 09:30 04/09/23 09:30 Abnormal Lab Results - Last 24 Hours (Table) 04/09/23 04/09/23 Range/Units 09:30 09:30 Sodium 136 L (137-145) mmol/L Glucose 106 H (74-99) mg/dL AST 42 H (14-36) U/L Urine Appearance Cloudy H (Clear) Ur Specific [place] 1.036 H (1.001-1.035) Urine Protein 1+ H (Negative) Urine Ketones 1+ H (Negative) Urine Blood Moderate H (Negative) Ur Squamous Epith Cells 5 H (0-4) /hpf Calcium Oxalate Crystal Few H (None) /hpf Urine Mucus Many H (None) /hpf Diabetes panel 04/09/23 Range/Units 09:30 Sodium 136 L (137-145) mmol/L Potassium 4.5 (3.5-5.1) mmol/L Chloride 103 (98-107) mmol/L Carbon Dioxide 22 (22-30) mmol/L BUN 7 (7-17) mg/dL Creatinine 0.71 (0.52-1.04) mg/dL Glucose 106 H (74-99) mg/dL Calcium 8.9 (8.4-10.2) mg/dL AST 42 H (14-36) U/L ALT 30 (4-34) U/L Alkaline Phosphatase 85 (38-126) U/L Total Protein 7.9 (6.3-8.2) g/dL Albumin 4.1 (3.5-5.0) g/dL Calcium panel 04/09/23 Range/Units 09:30 Calcium 8.9 (8.4-10.2) mg/dL Albumin 4.1 (3.5-5.0) g/dL Pituitary panel 04/09/23 Range/Units 09:30 Sodium 136 L (137-145) mmol/L Potassium 4.5 (3.5-5.1) mmol/L Chloride 103 (98-107) mmol/L Carbon Dioxide 22 (22-30) mmol/L BUN 7 (7-17) mg/dL Creatinine 0.71 (0.52-1.04) mg/dL Glucose 106 H (74-99) mg/dL Calcium 8.9 (8.4-10.2) mg/dL Adrenal panel 04/09/23 Range/Units 09:30 Sodium 136 L (137-145) mmol/L Potassium 4.5 (3.5-5.1) mmol/L Chloride 103 (98-107) mmol/L Carbon Dioxide 22 (22-30) mmol/L BUN 7 (7-17) mg/dL Creatinine 0.71 (0.52-1.04) mg/dL Glucose 106 H (74-99) mg/dL Calcium 8.9 (8.4-10.2) mg/dL Total Bilirubin 0.9 (0.2-1.3) mg/dL AST 42 H (14-36) U/L ALT 30 (4-34) U/L Alkaline Phosphatase 85 (38-126) U/L Total Protein 7.9 (6.3-8.2) g/dL Albumin 4.1 (3.5-5.0) g/dL
[2023-04-09] MEDS: ACETAMINOPHEN TAB 325 MG TAB PO PRN ×2 (14:17→21:41)
[2023-04-10] MEDS: PIPERACILLIN-TAZOBACTAM 3.375 GM in SODIUM CHLORIDE 0.9% 100 ML IVPB SCH ×3 (03:44→19:58)
[2023-04-10] MEDS: SODIUM CHLORIDE 0.9% 1,000 ML IV SCH ×4 (03:49→23:39)
[2023-04-10] MEDS: PANTOPRAZOLE 40 MG/10 ML VIAL IVP SCH ×2 (11:34→19:46)
[2023-04-10 11:56] LABS: Basophils # (A) 0.1 k/uL (0-0.2); Basophils % (A) 1 %; Eosinophils # (A) 0.2 k/uL (0-0.7); Eosinophils % (A) 2 %; HCT 40.2 % (34.0-46.0); HGB 12.9 gm/dL (11.4-16.0); Lymphocytes # (A) 1.8 k/uL (1.0-4.8); Lymphocytes % (A) 24 %; MCH 27.5 pg (25.0-35.0); MCHC 32.1 g/dL (31.0-37.0); MCV 85.8 fL (80.0-100.0); Mean Platelet Volume 7.7; Monocytes # (A) 0.4 k/uL (0-1.0); Monocytes % (A) 5 %; Neutrophils # (A) 4.8 k/uL (1.3-7.7); Neutrophils % (A) 65 %; Platelet Count 301 k/uL (150-450); RBC 4.69 m/uL (3.80-5.40); RDW 13.7 % (11.5-15.5); WBC 7.4 k/uL (3.8-10.6)
--- NOTE | 2023-04-10 13:04 | P.PN ---
Subjective Progress Note Date: 04/10/23 CHIEF COMPLAINT: Left lower quadrant abdominal pain HISTORY OF PRESENT ILLNESS: Patient reports that her pain is improving. She rates her pain about a 1 out of 10. She did have a bowel movement which was loose. Denies any nausea or vomiting. She did know a small amount of possible pink discharge from the vagina. Afebrile. WBC 7.4 Hgb 12.9 PHYSICAL EXAM: VITAL SIGNS: Reviewed. GENERAL: Well-developed in no acute distress. ABDOMEN: Soft. Nondistended. mild tenderness LLQ NEUROLOGIC: Alert and oriented. Cranial nerves II through XII grossly intact. ASSESSMENT: 1. Diverticulitis with fluid collection tracking from the distal sigmoid colon into the left adnexa with a small amount of air. Concerns for fistula. 2. History of prior episodes of diverticulitis PLAN: -Start clear liquid diet -Continue IV antibiotics -Continue IV fluids -Continue supportive care Physician Aluminum Molder note has been reviewed by physician. Signing provider agrees with the documented findings, assessment, and plan of care. I have personally seen and examined the patient, reviewed the REJOINER /PAs history, exam and MDM and agree with the assessment and plan as written. Based on total visit time, I have performed more than 50% of the visit. As above: Patient doing well today. Pain is a 0-2 out of 10. It was a 7 out of 10 on Saturday when she saw her bug trimmer. She is afebrile. White blood cell count normal. No vaginal discharge or pneumaturia. Advance to full liquids. May discharge tomorrow with plans for outpatient CAT scan next Saturday or Saturday on oral antibiotics if doing well. Patient will follow up me in the office after that and likely will refer to [facility] colorectal surgery team for possible laparoscopic sigmoid colectomy following that. Objective - Vital Signs Vital signs: Vital Signs Temp 98 F 04/10/23 11:15 Pulse 90 04/10/23 11:15 Resp 18 04/10/23 11:15 BP 114/76 04/10/23 11:15 Pulse Ox 98 04/10/23 11:15 FiO2 Intake & Output 04/09/23 04/10/23 04/10/23 18:59 06:59 18:59 Intake Total 100 0 Balance 100 0 Weight 79.379 kg 79.379 kg Intake: Intake, IV Titration 100 Amount Piperacillin-Tazobactam 3 100 .375 gm In Sodium Chloride 0.9% 100 ml @ 25 mls/hr IVPB Q8H [facility] Rx#: [id number] Oral 0 Other: # Bowel Movements 2 - Labs CBC & Chem 7: 04/10/23 11:14 04/09/23 09:30
--- NOTE | 2023-04-10 15:06 | P.PN ---
Subjective Progress Note Date: 04/10/23 Patient is a pleasant 42-year-old the female was having the pain in the left lower quadrant and constipation followed by diarrhea on Saturday. Patient denied any vomiting but was having nausea. Patient's pain is moderate severity patient was seen in the outpatient GI office and CT of the abdomen is soft. Which showed diverticulitis with possible colovesical fistula and patient was requested to go to ER. Patient was started on Zosyn here patient has a mild tachycardia rest of the labs are within normal limits patient doesn't have any leukocytosis or fever. General surgery was consulted. 04/10/2023 Patient is evaluated today in the medical floor. She remains nothing by mouth for possible surgical intervention regarding the diverticulitis with possible colovesical fistula. she reports having small amounts of diarrhea every time she uses the restroom. She is denying any vaginal discharge or odor. Continues on IV Zosyn. She is reporting mild abdominal discomfort mostly medial and left lower quadrant. White count remains normal at 7.4. Hemodynamically she is stable and her heart rate has improved to the 80s to 90s. Review of Systems Constitutional: Denied any fatigue denied any fever. Cardio vascular: denied any chest pain, palpitations Gastrointestinal: denied any nausea, vomiting, reports mild abdominal discomfort and diarrhea. Pulmonary: Denied any shortness of breath cough Neurologic denied any new focal deficits All inpatient medications were reviewed and appropriate changes in these medications as dictated in the interval history and assessment and plan. PHYSICAL EXAMINATION: GENERAL: The patient is alert and oriented x3, not in any acute distress. Well developed, well nourished. HEENT: Pupils are round and equally reacting to light. EOMI. No scleral icterus. No conjunctival pallor. Normocephalic, atraumatic. No pharyngeal erythema. No thyromegaly. CARDIOVASCULAR: S1 and S2 present. No murmurs, rubs, or gallops. PULMONARY: Chest is clear to auscultation, no wheezing or crackles. ABDOMEN: Soft, mild tenderness in the left lower quadrant nondistended, n ormoactive bowel sounds. No palpable organomegaly. MUSCULOSKELETAL: No joint swelling or deformity. EXTREMITIES: No cyanosis, clubbing, or pedal edema. NEUROLOGICAL: Gross neurological examination did not reveal any focal deficits. SKIN: No rashes. Assessment and plan -Left lower quadrant abdominal pain: Secondary to diverticulitis possible fistula continue with antibiotics IV fluids and surgery consultation -Tachycardia secondary to pain and diverticulitis IV fluids as mentioned above, tachycardia has improved patient will be continued on IV fluids DVT prophylaxis: Early ambulation GI prophylaxis Pepcid Full Code The impression and plan of care has been dictated by Riay Lomeli, Nurse Practitioner as directed. Dr. Kelley MD I have performed a history and physical examination and medical decision making of this patient, discussed the same with the dictator, and agree with the dictators assessment and plan as written, documented as a scribe. Based on total visit time, I have performed more than 50% of this visit. Objective - Vital Signs Vital signs: Vital Signs Temp 97.6 F 04/10/23 09:03 Pulse 74 04/10/23 09:03 Resp 18 04/10/23 09:03 BP 132/82 04/10/23 09:03 Pulse Ox 95 04/10/23 09:03 FiO2 Intake & Output 04/09/23 04/10/23 04/10/23 18:59 06:59 18:59 Intake Total 100 0 Balance 100 0 Weight 79.379 kg 79.379 kg Intake: Intake, IV Titration 100 Amount Piperacillin-Tazobactam 3 100 .375 gm In Sodium Chloride 0.9% 100 ml @ 25 mls/hr IVPB Q8H [facility] Rx#: [id number] Oral 0 Other: # Bowel Movements 2 - Labs CBC & Chem 7: 04/10/23 11:14 04/09/23 09:30 Labs: Abnormal Lab Results - Last 24 Hours (Table) 04/09/23 04/09/23 Range/Units 09:30 09:30 Sodium 136 L (137-145) mmol/L Glucose 106 H (74-99) mg/dL AST 42 H (14-36) U/L Urine Appearance Cloudy H (Clear) Ur Specific [place] 1.036 H (1.001-1.035) Urine Protein 1+ H (Negative) Urine Ketones 1+ H (Negative) Urine Blood Moderate H (Negative) Ur Squamous Epith Cells 5 H (0-4) /hpf Calcium Oxalate Crystal Few H (None) /hpf Urine Mucus Many H (None) /hpf Assessment and Plan Time with Patient: Less than 30
[2023-04-10] MEDS: ACETAMINOPHEN TAB 325 MG TAB PO PRN (22:40)
[2023-04-11] MEDS: PIPERACILLIN-TAZOBACTAM 3.375 GM in SODIUM CHLORIDE 0.9% 100 ML IVPB SCH ×3 (04:42→20:43)
[2023-04-11] MEDS: PANTOPRAZOLE 40 MG/10 ML VIAL IVP SCH ×2 (09:00→20:43)
[2023-04-11 10:25] LABS: African American GFR (CKD) >90 (>60 ml/min/1.73 sqM); Anion Gap 8 mmol/L; Blood Urea Nitrogen 4 mg/dL (7-17); Carbon Dioxide 21 mmol/L (22-30); Chloride 108 mmol/L (98-107); Glucose 89 mg/dL (74-99); Magnesium 1.9 mg/dL (1.6-2.3); Non-African American GFR(CKD) >90 (>60 ml/min/1.73 sqM); Potassium 3.7 mmol/L (3.5-5.1); Sodium 137 mmol/L (137-145)
[2023-04-11] MEDS: SODIUM CHLORIDE 0.9% 1,000 ML IV SCH (11:25)
--- NOTE | 2023-04-11 11:45 | P.PN ---
Subjective Progress Note Date: 04/11/23 CHIEF COMPLAINT: Left lower quadrant abdominal pain HISTORY OF PRESENT ILLNESS: Patient has very minimal pain. She rates it the pain from 0-2 out of 10. She's not requiring any pain medication. She cont inues to have diarrhea. Stool for C. diff was negative. No vaginal discharge or pneumaturia. She feels ready for diet advancement. Afebrile. WBC 7.4 yesterday PHYSICAL EXAM: VITAL SIGNS: Reviewed. GENERAL: Well-developed in no acute distress. ABDOMEN: Soft. Nondistended. Nontender NEUROLOGIC: Alert and oriented. Cranial nerves II through XII grossly intact. ASSESSMENT: 1. Diverticulitis with fluid collection tracking from the distal sigmoid colon into the left adnexa with a small amount of air. Concerns for fistula. 2. History of prior episodes of diverticulitis PLAN: -Advance diet to full liquids -Continue IV antibiotics -Patient can be discharged today from surgical standpoint if tolerating the full liquids. Will plan for outpatient CAT scan next Saturday or Saturday. Continue by oral antibiotics at discharge. Patient to follow-up with Dr. Aguilar in the office and then would set up referral to [facility] colorectal surgery team for possible laparoscopic sigmoid colectomy. Physician Anatomy Professor note has been reviewed by physician. Signing provider agrees with the documented findings, assessment, and plan of care. I have personally seen and examined the patient, reviewed the CYTOGENETICIST /PAs history, exam and MDM and agree with the assessment and plan as written. Based on total visit time, I have performed more than 50% of the visit. As above: Patient has had some increased discomfort after increasing diet earlier today. Continue IV antibiotics. Possible discharge tomorrow if doing well. Objective - Vital Signs Vital signs: Vital Signs Temp 97.8 F 04/11/23 08:00 Pulse 89 04/11/23 08:00 Resp 16 04/11/23 08:00 BP 135/78 04/11/23 08:00 Pulse Ox 98 04/11/23 08:00 FiO2 Intake & Output 04/10/23 04/11/23 04/11/23 18:59 06:59 18:59 Intake Total 180 10 Balance 180 10 Intake: IV 10 Invasive Line 1 10 Oral 180 Other: Voiding Method Toilet # Voids 1 1 - Labs CBC & Chem 7: 04/10/23 11:14 04/11/23 06:33 Labs: Abnormal Lab Results - Last 24 Hours (Table) 04/11/23 Range/Units 06:33 Chloride 108 H (98-107) mmol/L Carbon Dioxide 21 L (22-30) mmol/L BUN 4 L (7-17) mg/dL Calcium 8.0 L (8.4-10.2) mg/dL Microbiology - Last 24 Hours (Table) 04/09/23 11:00 Blood Culture - Preliminary Blood 04/09/23 10:45 Blood Culture - Preliminary Blood
[2023-04-11] MEDS ORDERED: POTASSIUM CHLORIDE ER 20 MEQ TAB.ER PO STA (11:54)
--- NOTE | 2023-04-11 15:28 | P.PN ---
Subjective Progress Note Date: 04/11/23 Patient is a pleasant 42-year-old the female was having the pain in the left lower quadrant and constipation followed by diarrhea on Saturday. Patient denied any vomiting but was having nausea. Patient's pain is moderate severity patient was seen in the outpatient GI office and CT of the abdomen is soft. Which showed diverticulitis with possible colovesical fistula and patient was requested to go to ER. Patient was started on Zosyn here patient has a mild tachycardia rest of the labs are within normal limits patient doesn't have any leukocytosis or fever. General surgery was consulted. 04/10/2023 Patient is evaluated today in the medical floor. She remains nothing by mouth for possible surgical intervention regarding the diverticulitis with possible colovesical fistula. she reports having small amounts of diarrhea every time she uses the restroom. She is denying any vaginal discharge or odor. Continues on IV Zosyn. She is reporting mild abdominal discomfort mostly medial and left lower quadrant. White count remains normal at 7.4. Hemodynamically she is stable and her heart rate has improved to the 80s to 90s. 04/11/2023 Patient continues to report mild abominal discomfort on the left lower quadrant was slightly worse today with diet increased to full liquid. She remains on IV zosyn and general surgery following closely. Patient will be monitored overnight and will likely due to follow-up with [facility] colorectal surgery team as recommended by Dr. Aguilar. Review of Systems Constitutional: Denied any fatigue denied any fever. Cardio vascular: denied any chest pain, palpitations Gastrointestinal: denied any nausea, vomiting, reports mild abdominal discomfort and diarrhea. Pulmonary: Denied any shortness of breath cough Neurologic denied any new focal deficits All inpatient medications were reviewed and appropriate changes in these medications as dictated in the interval history and assessment and plan. PHYSICAL EXAMINATION: GENERAL: The patient is alert and oriented x3, not in any acute distress. Well developed, well nourished. HEENT: Pupils are round and equally reacting to light. EOMI. No scleral icterus. No conjunctival pallor. Normocephalic, atraumatic. No pharyngeal erythema. No thyromegaly. CARDIOVASCULAR: S1 and S2 present. No murmurs, rubs, or gallops. PULMONARY: Chest is clear to auscultation, no wheezing or crackles. ABDOMEN: Soft, mild tenderness in the left lower quadrant nondistended, normoactive bowel sounds. No palpable organomegaly. MUSCULOSKELETAL: No joint swelling or deformity. EXTREMITIES: No cyanosis, clubbing, or pedal edema. NEUROLOGICAL: Gross neurological examination did not reveal any focal deficits. SKIN: No rashes. Assessment and plan -Left lower quadrant abdominal pain: Secondary to diverticulitis possible fistula continue with antibiotics IV fluids and surgery consultation -Tachycardia secondary to pain and diverticulitis IV fluids as mentioned above, tachycardia has improved diet has been advanced to clear liquid, patient did have increased abdominal pain with full liquid and will be monitored overnight. Patient to have outpatient follow up CT /sat next week and gen surgery follow up. Repeat labs in AM. DVT prophylaxis: Early ambulation GI prophylaxis Pepcid Full Code The impression and plan of care has been dictated by Riya Lomeli, Nurse Practitioner as directed. Dr. Kelley MD I have performed a history and physical examination and medical decision making of this patient, discussed the same with the dictator, and agree with the dictators assessment and plan as written, documented as a scribe. Based on total visit time, I have performed more than 50% of this visit. Objective - Vital Signs Vital signs: Vital Signs Temp 97.9 F 04/11/23 13:51 Pulse 92 04/11/23 13:51 Resp 16 04/11/23 13:51 BP 120/78 04/11/23 13:51 Pulse Ox 100 04/11/23 13:51 FiO2 Intake & Output 04/10/23 04/11/23 04/11/23 18:59 06:59 18:59 Intake Total 180 10 Balance 180 10 Intake: IV 10 Invasive Line 1 10 Oral 180 Other: Voiding Method Toilet # Voids 1 1 - Labs CBC & Chem 7: 04/10/23 11:14 04/11/23 06:33 Labs: Abnormal Lab Results - Last 24 Hours (Table) 04/11/23 Range/Units 06:33 Chloride 108 H (98-107) mmol/L Carbon Dioxide 21 L (22-30) mmol/L BUN 4 L (7-17) mg/dL Calcium 8.0 L (8.4-10.2) mg/dL Microbiology - Last 24 Hours (Table) 04/09/23 11:00 Blood Culture - Preliminary Blood 04/09/23 10:45 Blood Culture - Preliminary Blood Assessment and Plan Time with Patient: Less than 30
[2023-04-11] MEDS ORDERED: Magnesium Replacement Protocol 1 EACH MISC MISCELLANE PRN (15:29)
[2023-04-11] MEDS ORDERED: MAGNESIUM SULFATE-D5W PMX 1 GM in DEXTROSE/WATER 1 100ML.BAG IVPB ONE (16:30)
[2023-04-12] MEDS: PIPERACILLIN-TAZOBACTAM 3.375 GM in SODIUM CHLORIDE 0.9% 100 ML IVPB SCH ×2 (04:15→11:04)
[2023-04-12] MEDS: PANTOPRAZOLE 40 MG/10 ML VIAL IVP SCH (07:27)
[2023-04-12 09:29] LABS: Basophils # (A) 0.1 k/uL (0-0.2); Basophils % (A) 1 %; Eosinophils # (A) 0.1 k/uL (0-0.7); Eosinophils % (A) 2 %; HCT 35.9 % (34.0-46.0); HGB 12.1 gm/dL (11.4-16.0); Lymphocytes # (A) 1.7 k/uL (1.0-4.8); Lymphocytes % (A) 33 %; MCH 28.5 pg (25.0-35.0); MCHC 33.7 g/dL (31.0-37.0); MCV 84.7 fL (80.0-100.0); Mean Platelet Volume 7.4; Monocytes # (A) 0.2 k/uL (0-1.0); Monocytes % (A) 4 %; Neutrophils % (A) 57 %; Platelet Count 278 k/uL (150-450); RBC 4.23 m/uL (3.80-5.40); RDW 13.9 % (11.5-15.5); WBC 5.3 k/uL (3.8-10.6)
[2023-04-12 10:57] VITALS: RESP 14
--- NOTE | 2023-04-12 12:56 | P.PN ---
Subjective Progress Note Date: 04/12/23 CHIEF COMPLAINT: Left lower quadrant abdominal pain HISTORY OF PRESENT ILLNESS: Patient reports no abdominal pain. She reports the cramping that she was having yesterday afternoon has resolved. She was able to have a soft bowel movement. She is tolerating a low fiber chops diet. Afebrile. Mildly tachycardic at 108 now down to 98. Patient feels ready for discharge. PHYSICAL EXAM: VITAL SIGNS: Reviewed. GENERAL: Well-developed in no acute distress. ABDOMEN: Soft. Nondistended. Nontender NEUROLOGIC: Alert and oriented. Cranial nerves II through XII grossly intact. ASSESSMENT: 1. Diverticulitis with fluid collection tracking from the distal sigmoid colon into the left adnexa with a small amount of air. Concerns for fistula. 2. History of prior episodes of diverticulitis PLAN: -Patient can be discharged today from surgical standpoint. Will plan for outpatient CAT scan next Saturday or Saturday. Continue by oral antibiotics at discharge. Patient to follow-up with Dr. Aguilar in the office and then would set up referral to [facility] colorectal surgery team for possible laparoscopic sigmoid colectomy. Physician [employer]er note has been reviewed by physician. Signing provider agrees with the documented findings, assessment, and plan of care. Objective - Vital Signs Vital signs: Vital Signs Temp 98.1 F 04/12/23 10:53 Pulse 98 04/12/23 10:53 Resp 14 04/12/23 10:53 BP 130/84 04/12/23 10:53 Pulse Ox 96 04/12/23 10:53 FiO2 Intake & Output 04/11/23 04/12/23 04/12/23 18:59 06:59 18:59 Other: # Voids 4 2 - Labs CBC & Chem 7: 04/12/23 06:06 04/11/23 06:33 Labs: Microbiology - Last 24 Hours (Table) 04/09/23 11:00 Blood Culture - Preliminary Blood 04/09/23 10:45 Blood Culture - Preliminary Blood
[2023-04-12 13:41] VITALS: BP 125/83; PULSE 92; TEMP 98.3
[2023-04-12 14:20] LABS: BUN/Creat Ratio <3.89 Ratio (12.00-20.00); Blood Urea Nitrogen <3.5 mg/dL (9.0-27.0); Calcium 8.2 mg/dL (8.7-10.3); Carbon Dioxide 22.6 mmol/L (21.6-31.8); Chloride 105 mmol/L (96-109); Glucose 98 mg/dL (70-110); Magnesium 2.1 mg/dL (1.5-2.4); Sodium 138 mmol/L (135-145)
== END 2023-04-12 15:21 | disposition home or self-care (01) | DRG 392 ==
LOC: EC 09:02 → 4SSUR 10:46 → 3SCARD 04-10 10:19 → 4SSUR 04-10 23:19
PROVIDERS: ADMIT Hospitalist; ATTEND Hospitalist
DX: K57.92 Diverticulitis of intestine, part unspecified, without perforation or abscess without bleeding (principal); K63.2 Fistula of intestine; Z87.19 Personal history of other diseases of the digestive system
CPT/HCPCS: 36415; 80048; 80053; 81001; 81025; 83605; 83690; 83735; 85025; 85610; 85730; 87040; 87324; 96361; 96365; 96366; 99285

== ENCOUNTER → 2023-07-03 | Outpatient (CLI) | payer BC ==
[2023-07-03 17:19] LABS: BUN/Creat Ratio 21.11 Ratio (12.00-20.00); Calcium 9.7 mg/dL (8.7-10.3); Carbon Dioxide 24.3 mmol/L (21.6-31.8); Chloride 102 mmol/L (96-109); Glucose 74 mg/dL (70-110); Potassium 4.6 mmol/L (3.5-5.5); Sodium 137 mmol/L (135-145)
[2023-07-03 17:23] LABS: HCT 42.7 % (37.2-46.3); HGB 13.8 g/dL (12.0-15.0); MCH 27.7 pg (27.0-32.0); MCHC 32.3 g/dL (32.0-37.0); MCV 85.6 FL (80.0-97.0); Mean Platelet Volume 9.9 FL (9.5-12.2); NRBC Per 100 WBC 0 X 10*3/uL (0.00-0.01); Platelet Count 360 X 10*3/uL (140-440); RBC 4.99 X 10*6/uL (4.10-5.20); RDW 13.5 % (11.5-14.5); WBC 5.89 X 10*3/uL (4.50-10.00)
== END | disposition home or self-care (01) ==
LOC: LABWHC1 07:27
PROVIDERS: ATTEND Surgery
DX: Z01.812 Encounter for preprocedural laboratory examination (principal)
CPT/HCPCS: 36415; 80048; 85027

== ENCOUNTER → 2023-07-03 | Outpatient (CLI) | payer BC ==
--- NOTE | 2023-07-05 09:06 | MM ---
Reason for Exam: Screening (asymptomatic). Last screening mammogram was performed 12 month(s) ago. Patient History: Menarche at age 8. First Full-Term at age 17. Patient has history of breast feeding. Last menstrual period: 07/03/2023 Risk Values: Coby 5 year model risk: 0.6%. NCI Lifetime model risk: 7.7%. Prior Study Comparison: 05/05/2020 Bilateral Screening Mammogram, [facility]. 06/30/2021 Bilateral Screening Mammogram, [facility]. 07/02/2022 Bilateral MG screening mammo w CAD, [facility]. Tissue Density: The breast tissue is heterogeneously dense. This may lower the sensitivity of mammography. Findings: Analyzed By CAD. There is no suspicious group of microcalcifications or new suspicious mass in either breast. Overall Assessment: Benign, BI-RAD 2 Management: Screening Mammogram of both breasts in 1 year. . Patient should continue monthly self-breast exams. A clinical breast exam by your physician is recommended on an annual basis. This exam should not preclude additional follow-up of suspicious palpable abnormalities. Note on Coby scores and lifetime risk: 1. A Coby score greater than 3% is considered moderate risk. If this is the case, consider specialist referral to assess eligibility for a risk reducing agent. 2. If overall lifetime risk for the development of breast cancer is 20% or higher, the patient may qualify for future screening with alternating mammogram and breast MRI. Electronically signed and approved by: David Tyson M.D. Radiologis
== END | disposition home or self-care (01) ==
LOC: RADMAMWWP 07:06
PROVIDERS: ATTEND Obstetrics & Gynecology
DX: Z12.31 Encounter for screening mammogram for malignant neoplasm of breast (principal)
CPT/HCPCS: 77067

== ENCOUNTER → 2023-08-08 | Outpatient (CLI) | payer BC ==
--- NOTE | 2023-08-08 12:44 | XR ---
EXAMINATION TYPE: XR chest 2V DATE OF EXAM: 08/08/2023 11:00 AM CLINICAL INDICATION:Female, 42 years old with history of R07.9 Chest pain; [facility] COMPARISON: None TECHNIQUE: XR chest 2V Frontal and lateral views of the chest. FINDINGS: Lungs/Pleura: There is no evidence of pleural effusion, focal consolidation, or pneumothorax. Pulmonary vascularity: Unremarkable. Heart/mediastinum: Cardiomediastinal silhouette is unremarkable. Musculoskeletal: No acute osseous pathology. Other findings: None IMPRESSION: No acute cardiopulmonary disease/process.
== END | disposition home or self-care (01) ==
LOC: RADXRMAIN 10:51
PROVIDERS: ATTEND Urology
DX: R07.9 Chest pain, unspecified (principal)
CPT/HCPCS: 71046

== ENCOUNTER → 2024-07-16 | Outpatient (CLI) | payer BC ==
--- NOTE | 2024-07-16 09:20 | MM ---
Reason for Exam: Screening (asymptomatic). Last mammogram was performed 1 year(s) and 1 month(s) ago. Patient History: Menarche at age 8. First Full-Term at age 17. Patient has history of breast feeding. Risk Values: Coby 5 year model risk: 0.6%. NCI Lifetime model risk: 7.7%. Prior Study Comparison: 06/30/2021 Bilateral Screening Mammogram, [facility]. 07/02/2022 Bilateral MG screening mammo w CAD, [facility]. 07/03/2023 Bilateral MG screening mammo w CAD, [facility]. Tissue Density: The breasts are heterogeneously dense, which may obscure small masses. Findings: Analyzed By CAD. Right breast: There is no suspicious group of microcalcifications or new suspicious mass. Left breast: There is no suspicious group of microcalcifications or new suspicious mass. Overall Assessment: Negative, BI-RAD 1 Management: Screening Mammogram of both breasts in [address] [facility] will attempt to contact patient to return for supplemental views and ultrasound if indicated. Patient should continue monthly self-breast exams. A clinical breast exam by your physician is recommended on an annual basis. This exam should not preclude additional follow-up of suspicious palpable abnormalities. Note on Coby scores and lifetime risk: 1. A Coby score greater than 3% is considered moderate risk. If this is the case, consider specialist referral to assess eligibility for a risk reducing agent. 2. If overall lifetime risk for the development of breast cancer is 20% or higher, the patient may qualify for future screening with alternating mammogram and breast MRI. [facility], , 07/16/2024 9:15 AM. Electronically signed and approved by: Luc Lopez DO
== END | disposition home or self-care (01) ==
LOC: RADMAMWWP 07:13
PROVIDERS: ATTEND Family Medicine
DX: Z12.31 Encounter for screening mammogram for malignant neoplasm of breast (principal); R92.333 Mammographic heterogeneous density, bilateral breasts
CPT/HCPCS: 77067